=== PATIENT | male | born 1985 | race Hispanic/Latino ===

== ENCOUNTER 2017-10-18 21:29 | Emergency (ER) | payer SELFPAY | END 2017-10-18 22:46 | disposition home or self-care (01) | LOC: EDH 21:29 | DX: J02.9 Acute pharyngitis, unspecified (principal); R68.83 Chills (without fever); R05 Cough; Z72.0 Tobacco use | CPT/HCPCS: 99281 ==

== ENCOUNTER 2021-12-01 23:31 | Emergency (ER) | payer OTHER ==
[~2021-12-01] VITALS: Ht 172.7 cm; Wt 84.4 kg
[2021-12-01 23:48] VITALS: BP 152/94
[2021-12-01] MEDS ORDERED: IBUPROFEN 800 MG TAB ONE (23:54)
[2021-12-02] MEDS ORDERED: IBUPROFEN 800 MG TAB PO ONE
[2021-12-02] MEDS ORDERED: IBUP-2070 PO (00:11)
== END 2021-12-02 00:16 | disposition home or self-care (01) ==
LOC: EDH 23:31
DX: S63.8X1A Sprain of other part of right wrist and hand, initial encounter (principal); I10 Essential (primary) hypertension; J45.909 Unspecified asthma, uncomplicated; Z88.1 Allergy status to other antibiotic agents; W18.39XA Other fall on same level, initial encounter; Y93.89 Activity, other specified; Y92.89 Other specified places as the place of occurrence of the external cause; Y99.8 Other external cause status
CPT/HCPCS: 73130